=== PATIENT | male | born 1995 | race Caucasian/White ===

== ENCOUNTER 2023-11-29 15:27 | Emergency (ER) | payer SELFPAY ==
[~2023-11-29] VITALS: Ht 170.2 cm; Wt 83.0 kg
[2023-11-29 15:56] VITALS: O2SAT 99
[2023-11-29] MEDS ORDERED: VENL150C52 MT (16:17)
[2023-11-29 16:38] VITALS: BP 118/79; PULSE 91; RESP 16; TEMP 36.66960; O2SAT 99
== END 2023-11-29 16:42 | disposition home or self-care (01) ==
LOC: ER 15:27
DX: F41.9 Anxiety disorder, unspecified (principal); F32.9 Major depressive disorder, single episode, unspecified; Z76.0 Encounter for issue of repeat prescription
CPT/HCPCS: 99283